=== PATIENT | female | born 1975 | race Caucasian/White ===

== ENCOUNTER 2017-04-06 21:51 | Emergency (ER) | payer MEDICAID ==
[2017-04-06 22:02] VITALS: BP 115/90
--- NOTE | 2017-04-06 22:19 | ED Physician Documentation ---
PD HPI WOUND RECHECK - Stated complaint Stated Complaint: WOUND CHECK - Chief complaint Chief Complaint: Wound - Histroy obtained from History obtained from: Patient - History of Present Illness Location: Other (left buttock) Timing - onset: How many weeks ago (1) Associated symptoms: Redness, Swelling, Drainage Recently seen: Emergency Dept (in [place] 3 days ago with I&D abscess, and Rx Clindamycin and Percocet. Patient says redness and swelling greatly improved. Much less drainage from site. 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 - Present Medications Home Medications: Ambulatory Orders Medication Instructions Recorded Confirmed Clindamycin [Cleocin] 300 mg PO Q6H 10 Days capsule 12/02/15 04/06/17 Chlorhexidine Gluconate [Hibiclens] 10 ml TP DAILY #473 ml 04/06/17 Meloxicam [Mobic] 15 mg PO DAILY #15 tablet 04/06/17 - Allergies Allergies/Adverse Reactions: Allergies Allergy/AdvReac Type Severity Reaction Status Date / Time acetaminophen [From Vicodin] Allergy Itching Verified 12/02/15 20:16 hydrocodone bitartrate * Allergy Itching Verified 12/02/15 20:16 [From Vicodin] - Social History Does the pt smoke?: Yes Smoking Status: Current every day smoker Does the pt drink ETOH?: Yes Does the pt have substance abuse?: No - Immunizations Immunizations are current?: Yes PD ED PE NORMAL - Vitals Vital signs reviewed: Yes - General General: Alert and oriented X 3, No acute distress, Well developed/nourished - Derm Derm: Normal color, Warm and dry, Other (left gluteal with healing abscess site , with packing tape in place and dressing over it. Minimal drainage on dressing. ) Results - Vitals Vitals: Vital Signs - 24 hr 04/06/17 21:56 Temperature 36.5 C Heart Rate 115 H Respiratory 18 Rate Blood Pressure 115/90 H O2 Saturation 100 Oxygen O2 Source Room air PD MEDICAL DECISION MAKING - ED course Complexity details: considered differential (packing removed without problems. Does not look like it needs repacking. No redness nor swelling of skin around opening. ), d/w patient Departure - Departure Disposition: 01 Home, Self Care Clinical Impression: Encounter for recheck of abscess following incision and drainage Condition: Stable Record reviewed to determine appropriate education?: Yes Instructions: ED Packing Removal Replacement Prescriptions: Chlorhexidine Gluconate [Hibiclens] 10 ml TP DAILY #473 ml Meloxicam [Mobic] 15 mg PO DAILY #15 tablet Comments: Continue clindamycin. Mobic daily for inflammation. Cleanse the wound area with warm soaks in the bathtub or warm moist compresses couple of times a day to promote drainage. Covered with dry dressing. It will heal from the inside out and you want the incisional to remain open as long as it well. Recheck if worsening symptoms. Use chlorhexidine body wash from head to toe with showers daily for the next week and then once or twice a week after that. Recheck if not fully healed abscess over the next week or so.
== END 2017-04-06 22:31 | disposition home or self-care (01) ==
LOC: ED 21:51
DX: Z48.817 Encounter for surgical aftercare following surgery on the skin and subcutaneous tissue (principal); F17.200 Nicotine dependence, unspecified, uncomplicated
CPT/HCPCS: 99283

== ENCOUNTER 2017-06-04 08:22 | Emergency (ER) | payer MEDICAID ==
[2017-06-04] MEDS ORDERED: SODIUM CHLORIDE 0.9% 1,000 ML IV ONE (08:57)
--- NOTE | 2017-06-04 09:05 | ED Physician Documentation ---
History of Present Illness - Stated complaint Stated Complaint: FEMALE - Chief complaint Chief Complaint: Fever - History obtained from History obtained from: Patient, Family - History of Present Illness Timing: How many days ago (several) Pain level max: 5 Pain level now: 3 Improved by: rest Worsened by: movement - Additonal information Additional information: Patient is a 41-year-old female who presents to the emergency department with 2 complaints, the first is fevers, body aches, chills as well as rhinorrhea congestion and coughing up "chunky stuff". This is been going on for the past several days. She is also complaining of a heavier menstrual cycle than normal. States normally she has her menses for approximately 1 week and will go through a box of tampons during that time, states that she has gone through approximately half a box in the past 2 days. She has not had any lightheadedness, dizziness, syncope. Review of Systems Ten Systems: 10 systems reviewed and negative Constitutional: reports: Fever, Chills, Myalgias Nose: reports: Rhinorrhea / runny nose, Congestion Throat: denies: Sore throat Cardiac: denies: Chest pain / pressure, Palpitations Respiratory: reports: Cough. denies: Hemoptysis, Wheezing GI: denies: Abdominal Pain, Nausea, Vomiting, Diarrhea, Hematemesis, Bloody / black stool : reports: Vaginal bleeding (states on her menses now, heavier than normal). 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 - Present Medications Home Medications: Ambulatory Orders Medication Instructions Recorded Confirmed Clindamycin [Cleocin] 300 mg PO Q6H 10 Days capsule 12/02/15 04/06/17 Chlorhexidine Gluconate [Hibiclens] 10 ml TP DAILY #473 ml 04/06/17 Meloxicam [Mobic] 15 mg PO DAILY #15 tablet 04/06/17 Benzonatate [Tessalon Perle] 100 - 200 mg PO TID PRN #30 capsule 06/04/17 - Allergies Allergies/Adverse Reactions: Allergies Allergy/AdvReac Type Severity Reaction Status Date / Time acetaminophen [From Vicodin] Allergy Itching Verified 12/02/15 20:16 hydrocodone bitartrate * Allergy Itching Verified 12/02/15 20:16 [From Vicodin] - Social History Does the pt smoke?: Yes Smoking Status: Current every day smoker Does the pt drink ETOH?: Yes Does the pt have substance abuse?: No - Immunizations Immunizations are current?: Yes PD ED PE NORMAL - Vitals Vital signs reviewed: Yes - General General: Alert and oriented X 3, No acute distress - HEENT HEENT: PERRL, Ears normal, Moist mucous membranes, Pharynx benign - Neck Neck: Supple, no meningeal sign - Cardiac Cardiac: RRR, Strong equal pulses - Respiratory Respiratory: No respiratory distress, Clear bilaterally - Abdomen Abdomen: Normal bowel sounds, Soft, Non tender, Non distended - Back Back: No CVA TTP, No spinal TTP - Derm Derm: Warm and dry, No rash - Extremities Extremities: No edema, No calf tenderness / cord - Neuro Neuro: Alert and oriented X 3 - Psych Psych: Normal mood, Normal affect Results - Vitals Vitals: Vital Signs - 24 hr 06/04/17 06/04/17 08:27 10:51 Temperature 36.5 C 36.6 C Heart Rate 102 H 96 Respiratory 16 17 Rate Blood Pressure 131/92 H 126/87 H O2 Saturation 100 100 Oxygen O2 Source Room air - Labs Labs: Laboratory Tests 06/04/17 06/04/17 06/04/17 09:00 09:00 09:00 WBC 4.1 L RBC 4.88 Hgb 11.0 L Hct 34.7 L MCV 71.3 L MCH 22.6 L MCHC 31.7 L RDW 18.3 H Plt Count 278 MPV 7.0 L Neut # 2.9 Lymph # 0.8 L Leslie # 0.3 Eos # 0.1 Baso # 0.0 Absolute Nucleated RBC 0.00 Nucleated RBC % 0.0 Sodium 135 Potassium 3.9 Chloride 103 Carbon Dioxide 24 Anion Gap 8.0 BUN 11 Creatinine 0.6 Estimated GFR (MDRD) 111 Glucose 109 H Calcium 8.3 L Total Bilirubin 0.5 AST 23 ALT < 10 L Alkaline Phosphatase 63 Total Protein 7.0 Albumin 3.7 Globulin 3.3 Albumin/Globulin Ratio 1.1 Lipase 36 Urine Color Urine Clarity Urine pH Ur Specific [place] Urine Protein Urine Glucose (UA) Urine Ketones Urine Occult Blood Urine Nitrite Urine Bilirubin Urine Urobilinogen Ur Leukocyte Esterase Ur Microscopic Review Urine Culture Comments Influenza A (Rapid) Negative Influenza B (Rapid) Negative Influenza Types A,B Ag - 06/04/17 09:55 WBC RBC Hgb Hct MCV MCH MCHC RDW Plt Count MPV Neut # Lymph # Leslie # Eos # Baso # Absolute Nucleated RBC Nucleated RBC % Sodium Potassium Chloride Carbon Dioxide Anion Gap BUN Creatinine Estimated GFR (MDRD) Glucose Calcium Total Bilirubin AST ALT Alkaline Phosphatase Total Protein Albumin Globulin Albumin/Globulin Ratio Lipase Urine Color YELLOW Urine Clarity CLEAR Urine pH 6.0 Ur Specific [place] >=1.030 H Urine Protein NEGATIVE Urine Glucose (UA) NEGATIVE Urine Ketones NEGATIVE Urine Occult Blood NEGATIVE Urine Nitrite NEGATIVE Urine Bilirubin NEGATIVE Urine Urobilinogen 0.2 (NORMAL) Ur Leukocyte Esterase NEGATIVE Ur Microscopic Review NOT INDICATED Urine Culture Comments NOT INDICATED Influenza A (Rapid) Influenza B (Rapid) Influenza Types A,B Ag - Rads (name of study) cxr Radiology: Prelim report reviewed, EMP read contemporaneously, See rad report ( no acute disease) PD MEDICAL DECISION MAKING - ED course Complexity details: reviewed results, re-evaluated patient, considered differential, d/w patient, d/w family ED course: Patient is a 41-year-old female who presents to the emergency department what appears to be a viral syndrome, complicated by dehydration. Feels better after IV fluids and heart rate decreased. No acute findings on laboratory testing or radiographs. Influenza is negative. H&H are normal. She states that the vaginal bleeding has now nearly resolved and declines a pelvic. Will follow up with her doctor for further evaluation and care. She is well-appearing, nontoxic. Patient counseled regarding signs and symptoms for which I believe and urgent re-evaluation would be necessary. Patient with good understanding of and agreement to plan and is comfortable going home at this time This document was made in part using voice recognition software. While efforts are made to proofread this document, sound alike and grammatical errors may occur. Departure - Departure Disposition: 01 Home, Self Care Clinical Impression: Dehydration, Viral syndrome Menorrhagia Qualifiers: Menorrahagia type: with regular cycle Qualified Code(s): N92.0 - Excessive and frequent menstruation with regular cycle Condition: Good Instructions: ED Bleeding Menstrual Heavy, ED Viral Syndrome Follow-Up: your,doctor in 1 week [Other] Prescriptions: Benzonatate [Tessalon Perle] 100 - 200 mg PO TID PRN #30 capsule PRN Reason: Cough Comments: Drink plenty of fluids at home. Return if you worsen including lightheadedness , chest pain, difficulty breathing or passing out. You can use Motrin or Tylenol as needed for pain at home. Discharge Date/Time: 06/04/17 10:54
[2017-06-04 09:13] LABS: BASOPHILS % (AUTO) 0.8 %; EOSINOPHILS # (AUTO) 0.1 10^3/uL (0.0-0.7); EOSINOPHILS % (AUTO) 1.8 %; LYMPHOCYTES # (AUTO) 0.8 10^3/uL (1.5-3.5); LYMPHOCYTES % (AUTO) 19.2 %; MEAN CORPUSCULAR HEMOGLOBIN 22.6 pg (27.0-31.0); MEAN CORPUSCULAR HGB CONC 31.7 g/dL (32.0-36.0); MEAN CORPUSCULAR VOLUME 71.3 fL (81.0-99.0); MONOCYTES # (AUTO) 0.3 10^3/uL (0.0-1.0); MONOCYTES % (AUTO) 6.9 %; NEUTROPHILS # (AUTO) 2.9 10^3/uL (1.5-6.6); NEUTROPHILS % (AUTO) 71.3 %; PLT - PLATELET COUNT 278 10^3/uL (130-450); RED BLOOD COUNT 4.88 10^6/uL (4.20-5.40); RED CELL DISTRIBUTION WIDTH 18.3 % (12.0-15.0); WHITE BLOOD COUNT 4.1 x10^3/uL (4.8-10.8)
[2017-06-04 09:26] LABS: ALBUMIN 3.7 g/dL (3.2-5.5); ALBUMIN/GLOBULIN RATIO 1.1 (1.0-2.2); ALKALINE PHOSPHATASE 63 IU/L (42-121); ALT ALANINE AMINOTRANSFERASE < 10 IU/L (10-60); AST ASPARTATE AMINOTRANSFERASE 23 IU/L (10-42); BILIRUBIN,TOTAL 0.5 mg/dL (0.2-1.0); BUN - BLOOD UREA NITROGEN 11 mg/dL (6-20); CALCIUM 8.3 mg/dL (8.5-10.3); CARBON DIOXIDE - CO2 24 mmol/L (21-32); CHLORIDE 103 mmol/L (101-111); CREATININE 0.6 mg/dL (0.4-1.0); GFR - MDRD 111 (>89); GLUCOSE 109 mg/dL (70-100); LIPASE 36 U/L (22-51); SODIUM 135 mmol/L (135-145)
--- NOTE | 2017-06-04 09:30 | XRAY Report ---
EXAM: CHEST RADIOGRAPHY EXAM DATE: 06/04/2017 09:20 AM. CLINICAL HISTORY: Cough, fever. COMPARISON: None. TECHNIQUE: 2 views. FINDINGS: Lungs/Pleura: No focal opacities evident. No pleural effusion. No pneumothorax. Normal volumes. Mediastinum: Heart and mediastinal contours are unremarkable. Other: Negative bony structures. IMPRESSION: Negative 2-view chest radiography. [facility] Referring Provider Line: [phone] SITE ID: [id number]
[2017-06-04 10:11] LABS: BILIRUBIN,URINE NEGATIVE (NEGATIVE); GLUCOSE, URINE (UA) NEGATIVE (NEGATIVE); KETONES,URINE (UA) NEGATIVE (NEGATIVE); LEUKOCYTE ESTERASE, URINE NEGATIVE (NEGATIVE); NITRITE,URINE NEGATIVE (NEGATIVE); OCCULT BLOOD,URINE NEGATIVE (NEGATIVE); PROTEIN,URINE NEGATIVE (NEGATIVE); UROBILINOGEN,URINE 0.2 (NORMAL) E.U./dL (NORMAL)
[2017-06-04 10:16] LABS: CLARITY,URINE CLEAR (CLEAR)
[2017-06-04 10:52] VITALS: BP 126/87
== END 2017-06-04 10:54 | disposition home or self-care (01) ==
LOC: ED 08:22
DX: E86.0 Dehydration (principal); B34.9 Viral infection, unspecified; N92.0 Excessive and frequent menstruation with regular cycle; F17.200 Nicotine dependence, unspecified, uncomplicated
CPT/HCPCS: 36415; 71046; 80053; 81001; 81003; 83605; 83690; 85025; 87086; 87275; 87276; 96360; 99283; 99284

== ENCOUNTER 2017-06-06 11:36 | Emergency (ER) | payer MEDICAID ==
[2017-06-06 11:42] VITALS: BP 119/65
== END 2017-06-06 12:52 | disposition left against medical advice (07) ==
LOC: ED 11:36
DX: Z53.21 Procedure and treatment not carried out due to patient leaving prior to being seen by health care provider (principal)
CPT/HCPCS: 80053; 83690; 85025

== ENCOUNTER 2017-09-13 04:56 | Emergency (ER) | payer MEDICAID ==
[2017-09-13 05:03] VITALS: BP 120/86
[2017-09-13] MEDS ORDERED: oxyCOD/ACETAMIN 5 MG/325 MG TABLET PO STA (05:17)
[2017-09-13] MEDS ORDERED: PENICILLIN VK 250 MG TABLET PO STA (05:17)
--- NOTE | 2017-09-13 05:21 | ED Physician Documentation ---
PD HPI HEENT - Stated complaint Stated Complaint: MOUTH ABSCESS - Chief complaint Chief Complaint: Heent - History obtained from History obtained from: Patient, Family - History of Present Illness Timing - onset: How many weeks ago Timing - details: Gradual onset, Still present Location: Mouth Associated symptoms: Congestion. No: Fever Similar symptoms before: Work up / diagnostics, Treatment Recently seen: Not recently seen - Additional information Additional information: Patient is a 41 year old female with a long history of oral trauma, multiple dental caries with complications, dentures who is presenting to the emergency department for dental pain and swelling. patient and family state after the patient had plates placed in her mouth she has had recurrent infections. Patient states that she has not had follow up with the surgeon because he does not take state insurance. Patient has been working with [facility] for her other dental procedures but needs a referral to get in. Patient states that yesterday her face started to swell again and become more painful. 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 - Present Medications Home Medications: Ambulatory Orders Medication Instructions Recorded Confirmed Chlorhexidine Gluconate 15 ml MM Q6HR #1 mouthwash 09/13/17 Penicillin V Potassium 500 mg PO Q6HR 10 Days tablet 09/13/17 - Allergies Allergies/Adverse Reactions: Allergies Allergy/AdvReac Type Severity Reaction Status Date / Time hydrocodone bitartrate * Allergy Itching Verified 09/13/17 05:00 [From Vicodin] - Social History Does the pt smoke?: Yes Smoking Status: Current every day smoker Does the pt drink ETOH?: Yes Does the pt have substance abuse?: No - Immunizations Immunizations are current?: Yes - POLST Patient has POLST: No PD ED PE NORMAL - Vitals Vital signs reviewed: Yes - General General: Alert and oriented X 3, No acute distress - HEENT HEENT: Atraumatic - Neck Neck: Supple, no meningeal sign - Cardiac Cardiac: RRR - Respiratory Respiratory: No respiratory distress - Abdomen Abdomen: Non distended - Derm Derm: Normal color - Extremities Extremities: No deformity - Neuro Neuro: Alert and oriented X 3 - Psych Psych: Normal mood PD ED PE EXPANDED - HEENT HEENT: Dental decay, Dental TTP (tenderness to palpation of inferior gums, and swelling of the face but no drainable abscess or fluid collection). No: Dental trauma, Dental abscess Results - Vitals Vitals: Vital Signs - 24 hr 09/13/17 05:00 Temperature 36.8 C Heart Rate 94 Respiratory 18 Rate Blood Pressure 120/86 H O2 Saturation 100 Oxygen O2 Source Room air PD MEDICAL DECISION MAKING - ED course Complexity details: reviewed old records, reviewed results, re-evaluated patient , considered differential, d/w patient, d/w family ED course: Patient was seen and examined at bedside. patient was treated with pen vk and 1 percocet. Patient required no further work up at this time and was stable for discharge with outpatient follow up. Departure - Departure Disposition: 01 Home, Self Care Clinical Impression: Dental infection Condition: Good Instructions: ED Abscess Dental Follow-Up: primary,care provider [Other] - Tomorrow Prescriptions: Chlorhexidine Gluconate 15 ml MM Q6HR #1 mouthwash Penicillin V Potassium 500 mg PO Q6HR 10 Days tablet Comments: You have been prescribed an antibiotic pill and an antibiotic mouth wash. You will take both 4 times a day. You can alternate between motrin and tylenol as needed for pain. As you know ultimately you will need to follow up with your dentist for re-evaluation and care.
== END 2017-09-13 05:27 | disposition home or self-care (01) ==
LOC: ED 04:56
DX: K04.7 Periapical abscess without sinus (principal); K02.9 Dental caries, unspecified; F17.200 Nicotine dependence, unspecified, uncomplicated
CPT/HCPCS: 99283; A9270

== ENCOUNTER 2023-01-28 22:10 | Emergency (ER) | payer MEDICAID ==
--- NOTE | 2023-01-28 22:36 | ED Physician Documentation ---
PD HPI HEAD INJURY - Stated complaint Stated Complaint: FACE LAC - Chief complaint Chief Complaint: Laceration - History obtained from History obtained from: Patient - Additional information Additional information: 47-year-old woman who is up-to-date on tetanus has a remote history of facial fracture on the left requiring fixation. Tonight she had created a contraption to get out was out of trees, it was basically a bucket up on a stick. It kind of came apart and the bucket came down and hit her in the right infraorbital area. There was no loss of consciousness. Tetanus is up-to-date. She does have a wound there that is currently covered by a Band-Aid. She declined to have me remove the Band-Aid. I offered that she might do better with some formal wound care and she still declined. 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 - Present Medications Home Medications: Ambulatory Orders Medication Instructions Recorded Confirmed No Known Home Medications 01/28/23 01/28/23 - Allergies Allergies/Adverse Reactions: Allergies Allergy/AdvReac Type Severity Reaction Status Date / Time hydrocodone bitartrate * Allergy Itching Verified 01/28/23 22:20 [From Vicodin] - Social History Does the pt smoke?: Yes Smoking Status: Current every day smoker Does the pt drink ETOH?: Yes Does the pt have substance abuse?: No - Immunizations Immunizations are current?: Yes - POLST Patient has POLST: No PD ED PE NORMAL - Vitals Vital signs reviewed: Yes - General General: Alert and oriented X 3, No acute distress - HEENT HEENT: PERRL, EOMI, Other (Small Band-Aid over the right infraorbital area where there is some tenderness. No signs of entrapment. No other facial bony tenderness.) - Neck Neck: No bony TTP - Neuro Neuro: Alert and oriented X 3, Normal speech Eye Opening: Spontaneous Motor: Obeys Commands Verbal: Oriented GCS Score: 15 - Psych Psych: Normal mood, Normal affect Results - Vitals Vitals: Vital Signs - 24 hr 01/28/23 01/29/23 22:13 00:00 Temperature 36.7 C 36.8 C Heart Rate 97 85 Respiratory 16 16 Rate Blood Pressure 162/93 H 138/90 H O2 Saturation 100 97 Oxygen O2 Source Room air PD Medical Decision Making - ED course ED course: Has isolated R infraorbital facial injury. Refuses to remove small bandaid to evaluate wound. Wants CT to eval for frx. No e/o entrapment. S/o to Dr sherman at 11p shift chg pending CT. Departure - Departure Disposition: 07 Against Medical Advice Condition: Stable Forms: PCP List Discharge Date/Time: 01/29/23 00:38
[2023-01-28] MEDS ORDERED: ACETAMINOPHEN 500 MG TABLET PO STA (22:39)
[2023-01-28] MEDS ORDERED: IBUPROFEN 600 MG TABLET PO STA (22:39)
[2023-01-29 01:00] VITALS: BP 138/90; O2SAT 97
--- NOTE | 2023-01-29 01:54 | ED Physician Documentation ---
ED Addendum - Addendum Addendum: 01/29/23 01:52 I received signout/turnover of care from Dr. Mike at the end of his shift; please see his note for complete history and physical. At the time of signout, the plan was to obtain CT of the facial bones and disposition based on reevaluation and CT results. Unfortunately, prior to the CT being undertaken, the patient left AGAINST MEDICAL ADVICE. The potential risks and benefits of leaving AGAINST MEDICAL ADVICE were reviewed with the patient, patient signed the AMA form. She is in NAD at the time of leaving AMA.
== END 2023-01-29 00:38 | disposition left against medical advice (07) ==
LOC: ED 22:10
DX: S09.93XA Unspecified injury of face, initial encounter (principal); W22.8XXA Striking against or struck by other objects, initial encounter; Z53.29 Procedure and treatment not carried out because of patient's decision for other reasons; F17.200 Nicotine dependence, unspecified, uncomplicated
CPT/HCPCS: 99282; 99284; A9270

== ENCOUNTER 2023-02-05 13:25 | Outpatient (CLI) | payer MEDICAID ==
[2023-02-05 13:42] LABS: BASOPHILS # (AUTO) 0.1 10^3/uL (0.0-0.1); BASOPHILS % (AUTO) 0.7 %; EOSINOPHILS # (AUTO) 0.2 10^3/uL (0.0-0.7); EOSINOPHILS % (AUTO) 3.3 %; HCT - HEMATOCRIT 38.2 % (37.0-47.0); HGB - HEMOGLOBIN 11.3 g/dL (12.0-16.0); LYMPHOCYTES # (AUTO) 2.4 10^3/uL (1.5-3.5); LYMPHOCYTES % (AUTO) 32.9 %; MEAN CORPUSCULAR HEMOGLOBIN 21.2 pg (27.0-31.0); MEAN CORPUSCULAR HGB CONC 29.6 g/dL (32.0-36.0); MEAN CORPUSCULAR VOLUME 71.7 fL (81.0-99.0); MEAN PLATELET VOLUME 8.6 fL (7.9-10.8); MONOCYTES # (AUTO) 0.5 10^3/uL (0.0-1.0); MONOCYTES % (AUTO) 6.4 %; NEUTROPHILS % (AUTO) 56.3 %; PLT - PLATELET COUNT 361 10^3/uL (130-450); RED BLOOD COUNT 5.33 10^6/uL (4.20-5.40); RED CELL DISTRIBUTION WIDTH 18.6 % (12.0-15.0); WHITE BLOOD COUNT 7.2 x10^3/uL (4.8-10.8)
[2023-02-05 14:12] LABS: ALBUMIN 4.4 g/dL (3.2-5.5); ALBUMIN/GLOBULIN RATIO 1.5 (1.0-2.2); BILIRUBIN,TOTAL 0.5 mg/dL (0.2-1.0); CALCIUM 9.4 mg/dL (8.5-10.3); CREATININE 0.5 mg/dL (0.6-1.3); POTASSIUM 3.9 mmol/L (3.5-4.5); TOTAL PROTEIN 7.3 g/dL (6.4-8.9)
[2023-02-05 14:27] LABS: THYROID STIMULATING HORMONE 1.16 uIU/mL (0.34-5.60)
[2023-02-05 14:32] LABS: FERRITIN 3.6 ng/mL (11.0-306.8)
== END 2023-02-05 13:26 | disposition home or self-care (01) ==
LOC: LAB 13:25
PROVIDERS: ATTEND Physician Assistant
DX: N93.8 Other specified abnormal uterine and vaginal bleeding (principal)
CPT/HCPCS: 36415; 80050; 82728; 83540; 84466

== ENCOUNTER 2023-03-17 17:34 | Emergency (ER) | payer MEDICAID ==
[2023-03-17 17:54] VITALS: O2SAT 100
--- NOTE | 2023-03-17 18:38 | ED Physician Documentation ---
PD HPI SKIN - Stated complaint Stated Complaint: SPIDER BITE,NAUSEA - Chief complaint Chief Complaint: Wound - History obtained from History obtained from: Patient - Additional information Additional information: The patient comes to the emergency department chief complaint of suspected spider bite. She states that she was working in a wood pile and she saw lots of spiders and suddenly felt a burning, lancinating pain just posterior to her right axilla. She had her has significant other take a look and he saw a little bump with what appeared to be 2 fang solorzano. The patient did not see a specific spider on her person. She states the bite happened about 4 hours ago and she just continues to have burning pain in the area. No swelling. No fevers or chills. No other complaints at this time. 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 - Present Medications Home Medications: Ambulatory Orders Medication Instructions Recorded Confirmed Lidocaine Patch 5% [Lidoderm Patch] 1 each TOP DAILY PRN #5 patch 03/17/23 - Allergies Allergies/Adverse Reactions: Allergies Allergy/AdvReac Type Severity Reaction Status Date / Time hydrocodone bitartrate * Allergy Itching Verified 03/17/23 17:41 [From Vicodin] - Social History Does the pt smoke?: Yes Smoking Status: Current every day smoker Does the pt drink ETOH?: Yes Does the pt have substance abuse?: Yes Substance Use and Type: Marijuana - Immunizations Immunizations are current?: Yes - POLST Patient has POLST: No PD ED PE NORMAL - Vitals Vital signs reviewed: Yes - General General: Alert and oriented X 3, No acute distress, Well developed/nourished - HEENT HEENT: Atraumatic, PERRL, EOMI, Moist mucous membranes - Neck Neck: Supple, no meningeal sign - Respiratory Respiratory: No respiratory distress - Derm Derm: Warm and dry, Other (Approximately 2 mm, whitish raised area with mild erythema at the base. No pustule or vesicle. No drainage. No surrounding induration. No fluctuance. No extension of erythema beyond immediate lesion.) - Extremities Extremities: No deformity - Neuro Neuro: Alert and oriented X 3 - Psych Psych: Normal mood, Normal affect Results - Vitals Vitals: Vital Signs - 24 hr 03/17/23 17:43 Temperature 36.5 C Heart Rate 109 H Respiratory 16 Rate Blood Pressure 132/93 H O2 Saturation 100 Oxygen O2 Source Room air PD Medical Decision Making - ED course Complexity details: considered differential, d/w patient ED course: I discussed with the patient that I do not find evidence of a significant reaction or of any infection. I do not know what caused the lesion she has, whether this is a bite or whether something else punctured the area. What ever the case, significantly toxic venomous spiders are very rare here and at this point, there is no evidence of an especially toxic reaction. The patient is advised to apply ice packs and use ibuprofen as needed. I have prescribed a lidocaine patch for her and she has been given doses of Zofran and Ultram here in the emergency department. Departure - Departure Disposition: 01 Home, Self Care Clinical Impression: Skin lesion Condition: Stable Instructions: ED Bite Spider Non Poisonous Prescriptions: Lidocaine Patch 5% [Lidoderm Patch] 1 each TOP DAILY PRN #5 patch PRN Reason: Pain 1-4 Comments: Your bite area is very tiny and there is no redness or firmness or swelling of the skin and tissues to raise concern for infection or a big reaction. Its not entirely certain whether a spider or something else but you but what ever the case, this will be expected to go away on its own in the next several days. You may use ibuprofen and Tylenol at home and you may also use the lidocaine patches that been prescribed. The prescription for these has been electronically transmitted to the [facility] pharmacy in [place]. You have been given a sedating medication here in the emergency department tonight, so please do not drive for at least 6 hours.
[2023-03-17] MEDS: traMADol 50 MG TABLET PO STA (18:45)
[2023-03-17] MEDS: ONDANSETRON ODT 4 MG TABLET TL STA (18:45)
[2023-03-17 18:53] VITALS: BP 130/88
== END 2023-03-17 18:47 | disposition home or self-care (01) ==
LOC: ED 17:34
DX: L98.9 Disorder of the skin and subcutaneous tissue, unspecified (principal); F17.200 Nicotine dependence, unspecified, uncomplicated
CPT/HCPCS: 99282; 99283; A9270; Q0162

== ENCOUNTER 2023-07-18 01:04 | Emergency (ER) | payer MEDICAID ==
[2023-07-18 02:45] VITALS: BP 123/92; O2SAT 100
[2023-07-18] MEDS ORDERED: DEXAMETHASONE 10 MG/ML VIAL PO STA (03:20)
[2023-07-18 03:42] LABS: B. PARAPERTUSSIS- RESP PCR PAN NOT DETECTED; B. PERTUSSIS- RESP PCR PANEL NOT DETECTED; C. PNEUMONIAE- RESP PCR PANEL NOT DETECTED; CORONAVIRUS 229E-RESP PCR NOT DETECTED; CORONAVIRUS HKU1-RESP PCR NOT DETECTED; CORONAVIRUS NL63-RESP PCR NOT DETECTED; CORONAVIRUS OC43-RESP PCR NOT DETECTED; HUMAN METAPNEUMOVIRUS NOT DETECTED; INFLUENZA A- RESP PCR PANEL NOT DETECTED; INFLUENZA B - RESP PCR PANEL NOT DETECTED; M. PNEUMONIAE- RESP PCR PANEL NOT DETECTED; PARAINFLUENZA VIRUS 1 NOT DETECTED; PARAINFLUENZA VIRUS 2 NOT DETECTED; PARAINFLUENZA VIRUS 3 NOT DETECTED; PARAINFLUENZA VIRUS 4 NOT DETECTED; RHINOVIRUS/ENTEROVIRUS DETECTED; RSV- RESP PCR PANEL NOT DETECTED; SARS-CoV-2 -RESP PCR PANEL NOT DETECTED
--- NOTE | 2023-07-18 04:37 | ED Physician Documentation ---
PD HPI URI - Stated complaint Stated Complaint: BODY ACHES/SOA/CONGESTION - Chief complaint Chief Complaint: Resp - History obtained from History obtained from: Patient, Family () - History of Present Illness Timing - onset: How many weeks ago (1) Timing duration: Weeks (1) Timing details: Gradual onset, Still present Associated symptoms: Nasal congestion, Rhinorrhea, Sore throat, Productive cough Contributing factors: Sick contact ( sick with similar) Improves by: Rest, Medication Worsened by: Activity Similar symptoms before: Diagnosis (COVID and pneumonia) Recently seen: Not recently seen - Additional information Additional information: Tyesha Allen is a 47-year-old female with history of prior pneumonia who has had COVID twice. She has been immunized and boosted as well. She has been sick for about 1 week with a cough congestion and aches in her illness persist at 1 week. She is coughing up thick phlegm. She did test for COVID which was negative. Review of Systems Constitutional: reports: Fever, Chills, Myalgias, Sweats Eyes: denies: Decreased vision Ears: denies: Ear pain Nose: reports: Rhinorrhea / runny nose, Congestion Throat: reports: Sore throat Cardiac: denies: Chest pain / pressure, Palpitations Respiratory: reports: Dyspnea, Cough GI: denies: Vomiting, Diarrhea : denies: Dysuria, Frequency PD PAST MEDICAL HISTORY - Past Medical History Respiratory: Pneumonia Neuro: None HEENT: None Psych: Anxiety, Other - Past Surgical History Past Surgical History: Yes General: Appendectomy /[employer]: Tubal ligation - Present Medications Home Medications: Ambulatory Orders Medication Instructions Recorded Confirmed Azithromycin [Zithromax] 250 mg PO DAILY #6 tablet 07/18/23 Gabapentin [Neurontin] 1 cap PO TID 07/18/23 07/18/23 - Allergies Allergies/Adverse Reactions: Allergies Allergy/AdvReac Type Severity Reaction Status Date / Time hydrocodone bitartrate * Allergy Itching Verified 07/18/23 01:19 [From Vicodin] - Social History Does the pt smoke?: Yes Smoking Status: Current every day smoker Does the pt drink ETOH?: Yes Does the pt have substance abuse?: No - Immunizations Immunizations are current?: Yes - POLST Patient has POLST: No PD ED PE NORMAL - Vitals Vital signs reviewed: Yes (tachy ) - General General: Alert and oriented X 3, No acute distress, Well developed/nourished - HEENT HEENT: Atraumatic, PERRL, EOMI, Ears normal, Moist mucous membranes, Dentition benign, Other (mild pharyngeal erythema ) - Neck Neck: Supple, no meningeal sign, No bony TTP - Cardiac Cardiac: RRR, No murmur - Respiratory Respiratory: No respiratory distress, Other (diminished breath sounds bilat) - Abdomen Abdomen: Soft, Non tender - Back Back: No CVA TTP, No spinal TTP - Derm Derm: Normal color, Warm and dry, No rash - Extremities Extremities: No deformity, No edema - Neuro Neuro: Alert and oriented X 3, access consultant 2-12 intact, No motor deficit, No sensory deficit, Normal speech Eye Opening: Spontaneous Motor: Obeys Commands Verbal: Oriented GCS Score: 15 - Psych Psych: Normal mood, Normal affect Results - Vitals Vitals: Vital Signs - 24 hr 07/18/23 07/18/23 01:16 02:39 Heart Rate 105 H 99 Respiratory 24 14 Rate Blood Pressure 128/75 123/92 H O2 Saturation 100 Oxygen O2 Source Room air - Labs Labs: Laboratory Tests 07/18/23 01:35 Nasal Adenovirus (PCR) NOT DETECTED Nasal B. parapertussis DNA (PCR) NOT DETECTED Nasal Coronavir 229E PCR NOT DETECTED Nasal Coronavir HKU1 PCR NOT DETECTED Nasal Coronavir NL63 PCR NOT DETECTED Nasal Coronavir OC43 PCR NOT DETECTED Nasal Enterovir/Rhinovir PCR DETECTED A Nasal Influenza B PCR NOT DETECTED Nasal Influenza A PCR NOT DETECTED Nasal Parainfluen 1 PCR NOT DETECTED Nasal Parainfluen 2 PCR NOT DETECTED Nasal Parainfluen 3 PCR NOT DETECTED Nasal Parainfluen 4 PCR NOT DETECTED Nasal RSV (PCR) NOT DETECTED Nasal B.pertussis DNA PCR NOT DETECTED Nasal C.pneumoniae (PCR) NOT DETECTED Moris Human Metapneumo PCR NOT DETECTED Nasal M.pneumoniae (PCR) NOT DETECTED Nasal SARS-CoV-2 (PCR) NOT DETECTED - Rads (name of study) chest Relevant Findings:: Prelim report reviewed (Impression: Bronchial wall thickening right lower lobe.), EMP independent interpretation of test PD Medical Decision Making - ED course Complexity details: considered differential, d/w patient Reviewed Lab Results: We obtained a nasal swab for viruses and found this swab to be positive for rhinovirus. Similar to what we found on the patient's . We obtained an x-ray of the patient's chest with complaints of cough and shortness of breath and found that she had thickening of the bronchial wall in the right lower lobe. On examination she has diminished breath sounds. These are the findings at one week from the start of illness. I would expect the patient to be improving from the viral infection at one week. I combined these results with the complaint of thick yellow phlem to come up with a diagnosis of bronchitis and I believe she would benefit from antibiotic. ED course: 47-year-old female with rhinovirus appears to have secondary bronchitis. She is given a dose of dexamethasone and we will place her on a course of azithromycin. Departure - Departure Disposition: Home, Self Care Clinical Impression: Bronchitis, Rhinovirus infection Condition: Stable Instructions: Cold Virus, ED Upper Resp Infec Abx Tx Follow-Up: Ruthy Sethi PA-C [Provider Admit Priv/Credential] - Prescriptions: Azithromycin [Zithromax] 250 mg PO DAILY #6 tablet Comments: Tyesha, today it looks like you have a bronchitis that is related to rhinovirus and the thick sputum that you are coughing up is an indication to use antibiotic to help you heal from this. I have E scribed some azithromycin to the [facility] in [place]. Forms: PCP List
[2023-07-18] MEDS: DEXAMETHASONE 10 MG/ML VIAL PO STA (05:16)
[2023-07-18] MEDS: CHERRY SYRUP 10 ML UDC PO ONE ×2 (05:16)
--- NOTE | 2023-07-18 08:37 | XRAY Report ---
PROCEDURE: Chest 1V INDICATIONS: cough soa TECHNIQUE: One view of the chest was acquired. COMPARISON: 06/04/2017. FINDINGS: Surgical changes and devices: None. Lungs and pleura: No pleural effusions or pneumothorax. Lungs are clear. Right basilar bronchial wa ll thickening. Mediastinum: Mediastinal contours appear normal. Heart size is normal. Bones and chest wall: No suspicious bony lesions. Overlying soft tissues appear unremarkable. IMPRESSION: Right basilar bronchial wall thickening. No acute infiltrates. Findings are concordant with preliminary interpretation provided by [facility]. Reviewed by: Chuck Novak MD on 07/18/2023 8:36 AM PDT Approved by: Chuck Novak MD on 07/18/2023 8:36 AM PDT Station ID: [id number]
== END 2023-07-18 05:31 | disposition home or self-care (01) ==
LOC: ED 01:04
DX: J40 Bronchitis, not specified as acute or chronic (principal); B34.8 Other viral infections of unspecified site; F17.200 Nicotine dependence, unspecified, uncomplicated; Z79.899 Other long term (current) drug therapy
CPT/HCPCS: 71045; 87633; 99284; A9270